=== PATIENT | male | born 1960 | race Caucasian/White ===

== ENCOUNTER 2016-05-01 10:50 | Inpatient (IN) | payer MEDICARE ==
--- NOTE | ~2016-05-01 | CN ---
Consultation Report [facility] [address] [place]. [address] NAME: CAYDEN SANCHES : 58 STATUS : ADM IN [facility]#: [id number] AGE: 56 ADM/REG DATE : 05/01/16 MR#: [id number] REPORT SERV DATE: 05/03/16 DICTATED BY: KWAKU PASCAL IV DATE: 05/03/16 REPORT STATUS : Draft TRANSCRIBED BY: BRE DATE: 05/03/16 PULMONARY CONSULTATION. DATE OF CONSULTATION: 05/03/2016 REASON FOR REQUEST: Acute on chronic hypercapnic respiratory failure with possible need for home BiPAP. HISTORY OF PRESENT ILLNESS: History was obtained from the records and from the patient and . Mr. Sanches is a 56-year-old male with a history of clinical very severe COPD, acute on chronic hypercapnic respiratory failure, tobacco dependency, cavitary lung lesion, and hypertension, who was admitted on 05/01 with recurrent exacerbation. The patient has been followed locally by initially Dr. Mims and then Dr. Marino [place]. He was admitted in a hospital in [place], [place] in late November or December for hypercapnic respiratory failure. He was on the ventilator for several days. He was sent to an inpatient rehab facility, where he stayed for 22 days. His exercise tolerance has been at best 25 feet since his discharge. He is on supplemental oxygen 24/7 at 3 L/minute. He has a Symbicort inhaler, which he uses twice a day at home as well as a nebulizer and ProAir. He was intolerant of Spiriva by his report and may have had altered mental status with Daliresp though is unsure if this was another medication. He has a daily cough productive of white phlegm. Denies fevers, chills, sweats, or hemoptysis. He did wear BiPAP transiently on presentation to the emergency room and felt this provided benefit. PULMONARY HISTORY: Remarkable for possible childhood asthma as well as the adult obstructive lung disease. He has had pneumonia in the past. He has an 80-pack year smoking history, having quit consistent use in 12/2015, however, he continues to smoke a cigarette a day and a pack in the last week. He was a truck crane operator by occupation. Currently on disability. He is up to date on both seasonal influenza vaccine as well as the pneumococcal vaccination. He is unaware of any exposure to tuberculosis or high risk situations or exposures. PAST MEDICAL HISTORY: 1. Clinical very severe COPD. 2. Chronic hypoxemia. 3. Tobacco dependency. 4. Hypertension. 5. Cavitary lung lesion. SURGERIES: The patient has abdominal hernia repair with mesh placement and then bilateral retinal surgery and cataracts. ALLERGIES: THERE ARE NO KNOWN DRUG ALLERGIES, THOUGH HE FELT HE WAS INTOLERANT TO SPIRIVA AND POSSIBLY DALIRESP. CURRENT MEDICATIONS: The patient is on Brovana unit dose twice a day, BuSpar 5 mg three Consultation Report [address] [place]. [address] NAME: CAYDEN SANCHES : 58 STATUS : ADM IN [facility]#: [id number] AGE: 56 ADM/REG DATE : 05/01/16 MR#: [id number] REPORT SERV DATE: 05/03/16 DICTATED BY: KWAKU PASCAL IV DATE: 05/03/16 REPORT STATUS : Draft TRANSCRIBED BY: BRE DATE: 05/03/16 times a day, prednisone 40 mg daily, DuoNeb every four hours, Proventil q.2 hours, Humibid 600 mg twice a day, Habitrol patch 14 mg daily, Lexapro 10 mg daily, Lopressor 25 mg three times a day, Lovenox 40 mg daily, Pulmicort 1 mg twice a day, and doxycycline 100 mg twice a day. SOCIAL HISTORY: Remarkable for the tobacco use as above. There is very rare alcohol use. No illicit drug use. He is , has a child. FAMILY HISTORY: Remarkable for both parents with presumed COPD. REVIEW OF SYSTEMS: 14-systems reviewed and pertinent positives noted above. PHYSICAL EXAMINATION: GENERAL: This is a late middle-aged male, appearing older than his stated age, in no respiratory distress at rest. He is alert, awake, and oriented. We communicate via kai [place]. VITAL SIGNS: Temperature is 98, respiratory rate is 18, saturations are 97% on 3 L via nasal cannula, heart rate is 70, and blood pressure is 127/70. HEENT: Exam is normocephalic, atraumatic. Extraocular movements are intact. Pupils react to light. Sclerae and conjunctivae normal. He has nasal cannula in place. He has a Mallampati III airway with narrowing of the posterior pharyngeal space. He is edentulous. NECK: Without any palpable lymphadenopathy or thyromegaly. CHEST: The patient has a few dry bibasilar inspiratory crackles. Expiratory phase is quite prolonged with some very faint end-expiratory wheezes. No true rhonchi are noted. CARDIOVASCULAR: Jugular venous pulsations appear to be approximately 7 cm. He has 1+ carotid upstrokes. No obvious bruit. He has a very distant regular S1, S2 with no clear murmur or S3. Peripheral pulses are diminished. ABDOMEN: Surgical scars noted. Soft, nontender. There are hypoactive bowel sounds. There is no palpable hepatosplenomegaly or mass. EXTREMITIES: Demonstrate no cyanosis, clubbing, edema, or palpable cords. NEUROLOGIC: The patient is able to follow commands. He moves all extremities. Strength is 5/5. He has decreased auditory acuity. Chest CT scan demonstrates a cavity and scar in the predominantly apical posterior and also anterior segment of the left upper lobe. There were tree-in-bud densities in the right base. There was marked emphysematous changes with no significant adenopathy. CBC: Hemoglobin 11.9, hematocrit 40.2, platelet count was 269,000, and white blood cell count is 9.6. Procalcitonin level is less than 0.05. Sodium is 146, potassium 4.1, chloride 96, hematocrit 44, BUN 14, creatinine 0.56, glucose of 100. Free T4 is normal. TSH was slightly suppressed. Initial blood gas was pH 7.29, pCO2 of 97, PO2 of 96. Most recent blood gas was pH of 7.34, pCO2 of 87, PO2 of 113. ASSESSMENT AND PLAN: 1. Respiratory. We will try Anoro Ellipta to see if he is tolerant of this LAMA. We will Consultation Report [address] [place]. [address] NAME: CAYDEN SANCHES : 58 STATUS : ADM IN [facility]#: [id number] AGE: 56 ADM/REG DATE : 05/01/16 MR#: [id number] REPORT SERV DATE: 05/03/16 DICTATED BY: KWAKU PASCAL IV DATE: 05/03/16 REPORT STATUS : Draft TRANSCRIBED BY: MODBruno DATE: 05/03/16 continue the Pulmicort 1 mg twice a day. Nebulizer will be changed from DuoNebs to albuterol with EzPAP q.4 hours while awake and q.2 hours as needed. He will be given Acapella valve three times a day. We will retry him on Daliresp with his recurrent exacerbations 500 mg daily. An overnight oximetry will be obtained on oxygen to see if he is a candidate for home BiPAP and alpha-1 antitrypsin level will be obtained with marked emphysema. 2. Infectious disease. TB QuantiFERON study will be obtained. By his report, a negative PPD skin test in last summer. 3. Neurologic. Habitrol patch for tobacco dependency. Thiamine will be given 200 mg daily for the debilitated state. 4. Renal. We will check a phosphate level and replace as indicated. 5. Endocrinologic. We will watch the blood sugars on steroids. Thank you for consulting us. We will follow the patient with you. OCTAVIANO/BRE Kwaku Pascal IV, M.D. / [id number] CC: Lucian Carias M.D.
--- NOTE | ~2016-05-01 | HP ---
History And Physical [id number] [facility] [place]. [address] NAME: CAYDEN SANCHES : 58 STATUS : ADM IN [facility]#: [id number] AGE: 55 ADM/REG DATE : 05/01/16 MR#: [id number] REPORT SERV DATE: 05/01/16 DICTATED BY: CHARLENE JAMA DATE: 05/01/16 REPORT STATUS : Draft TRANSCRIBED BY: MODL DATE: 05/01/16 DATE OF ADMISSION: 05/01/2016 IDENTIFYING DATA: A 55-year-old white male whose PCP is Dr. Shawna [place] in [place], [place], and electronic calibration technician is Dr. Marino [place] in [place]. CHIEF COMPLAINT: Shortness of breath. HISTORY OF PRESENT ILLNESS: This history of present illness is obtained by talking with the patient and also with his . I spoke with the ER physician, Dr. Llamas. I reviewed the current ER chart and talked with the ER nurse. This patient's at bedside is of help. She is deaf, but she reads lips and communicates through that mechanism. Her speech is actually quite easy to understand. The patient appears to have some mild to moderate hearing loss, but he seemed to answer me on subject every time I would ask him questions. However, when I asked him a question, 90% of the time, he would turn to his , sign to her, then she would sign something back to him, and then he would finally answer me. When I would get him to just look at me and stay focused and answer my questions, he stayed on topic. It sounds like he has had known severe COPD for several years. He wears oxygen 3 L nasal cannula 13/09. It sounds like he was hospitalized at [facility] in [place] in 09/2015 and was there for about four days, then he was hospitalized at [facility] in [place], [place]. He was on the ventilator. The states it was for two days. She states after that when he recovered, he went to a rehab. When I asked if he has been told by his doctor that he has a serious problem in his left upper lung, he states yes they told him he had a hole in that lung. I described a fiberoptic bronchoscopy, he states he has never had that. I described biopsy, he states he has never had that. He denies any history of active tuberculosis or exposure. He states he has had PPD skin test before and they were normal. I asked the the same questions and she does not know of any tuberculosis exposure or history. He is quite debilitated. At best, he can walk from 10 to 25 feet. He has been that way for a number of months. Last night, he had increased shortness of breath, increased cough, no increase in sputum. Came to the emergency room where he was noted to have hypercapnic hypoxic respiratory failure with respiratory acidosis, acute on chronic, and we were asked to admit him to the hospital. His initial blood gas done on room air pH 7.29, pCO2 of 97, pO2 of 96, bicarbonate 45. We have been asked to admit him to the hospital. He states he had his flu shot and is up-to-date on his pneumonia vaccine. REVIEW OF SYSTEMS: On review of systems, he has had some nausea. No vomiting. He has some mild low back pain. He denies chest pain, fever, abdominal pain, vomiting, diarrhea, rectal bleeding, melena, dysuria, falls, urinary hesitancy, nocturia, peripheral edema, rash, tick bites, or anorexia. He is uncertain if he has lost weight. History And Physical [address] [address] NAME: CAYDEN SANCHES : 58 STATUS : ADM IN [facility]#: [id number] AGE: 55 ADM/REG DATE : 05/01/16 MR#: [id number] REPORT SERV DATE: 05/01/16 DICTATED BY: CHARLENE JAMA DATE: 05/01/16 REPORT STATUS : Draft TRANSCRIBED BY: BRE DATE: 05/01/16 ALLERGIES: NO KNOWN DRUG ALLERGIES. PAST MEDICAL HISTORY: He denies any history of diabetes, heart disease, stroke, seizure, peptic ulcer, biliary tract disease, liver disease, chronic kidney disease, kidney stones, thyroid disease, sleep apnea, or cancer. Other past medical history includes hypertension, generalized anxiety, and depression. HOME MEDICATIONS: Albuterol nebulized and handheld, Xanax 1 mg twice a day scheduled and an extra 1 mg p.r.n. anxiety, Symbicort 160/4.5 two puffs twice a day, Lexapro 10 mg every morning, Flonase nasal spray p.r.n. seasonal allergies, Mucinex 600 mg twice daily, ibuprofen [id number] p.r.n. headache, Levaquin 750 mg daily that he reportedly started yesterday. His indicates that his PCP gave him a prescription of this to keep at home to take in case he had an acute exacerbation. Lopressor 25 mg t.i.d. PAST SURGICAL HISTORY: He has had a low abdominal hernia repair and cataract surgeries. SOCIAL HISTORY: He used to smoke two packs cigarettes per day. He has cut it down to one pack per day as of 12/2015. 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 Alcohol, he states he used to drink a little, but not a lot. He states he does not drink now. He is . His is deaf, but is excellent at lip reading, and she can communicate also by sign language and handwriting. The patient states he walks with a cane and a walker. FAMILY HISTORY: He reports both parents with histories of COPD. He does not know the health issues for his siblings. DIAGNOSTIC DATA: Chest x-ray reveals markedly hyperexpanded lung fermin with increased interstitial markings diffusely in the mid and lower lung fermin. He has dense area of haziness, possible mass versus infiltrate in the left upper lung with some central clearing areas that could represent a cavitary lesion per my interpretation. EKG done at 0919 hours reveals normal sinus rhythm. Left anterior fascicular block, pulmonary disease pattern, right atrial enlargement as per my interpretation. Arterial blood gas on 32% oxygen; pH 7.29, pCO2 of 97, pO2 of 96, bicarbonate 45. Sodium 142, potassium 4, chloride 93, CO2 is 43, BUN 12, creatinine 0.49, glucose is 144, calcium 9.1. His lactate is 2. His white count is 13.5, hemoglobin 12.9, MCHC is microcytic, the rest of the indices normal, and platelets are 269,000. PHYSICAL EXAMINATION: VITAL SIGNS: Temperature is 98, pulse 70, respirations 22, blood pressure 140/70, and O2 saturation is currently 97% on BiPAP. GENERAL: A well-developed male, who appears significantly older than his stated age and with [id number] respiratory distress. He has BiPAP on. HEENT: Head is atraumatic. Pupils are equal, round, and reactive to light. Extraocular motions are intact. No scleral icterus noted. Ear canals and TMs unremarkable. No History And Physical [address] [address] NAME: CAYDEN SANCHES : 58 STATUS : ADM IN PAT#: [id number] AGE: 55 ADM/REG DATE : 05/01/16 MR#: [id number] REPORT SERV DATE: 05/01/16 DICTATED BY: CHARLENE JAMA DATE: 05/01/16 REPORT STATUS : Draft TRANSCRIBED BY: MODBruno DATE: 05/01/16 inflammatory changes noted in the external ears. Nose, externally noninflamed. Septum midline. Nares patent. Mouth, I can see his tongue when he opens his mouth, but he has BiPAP on. Tongue appeared normal. He has a prominent carrillo. NECK: Supple. No lymph node or thyroid enlargement. The carotids have good pulses. No bruits. LUNGS: Prolonged expiratory phase in all lung fermin. 1+ expiratory wheezes diffusely, mildly increased respiratory effort. HEART: Regular rate and rhythm without murmur, gallop, click, or rub. ABDOMEN: Bowel sounds positive. Soft, flat, nondistended, nontender. No masses. No organomegaly. EXTREMITIES: Warm. No clubbing, no cyanosis, no edema. The distal left second finger is surgically absent and appears chronic. NEUROLOGICAL: He is alert. He appears oriented and cooperative. He has moderately diminished hearing, but again when I speak straight to him, he answered me each time on subject when he finally would answer me. His motor strength is symmetrical at 4/5 in all four extremities. No Babinski. No clonus noted. Other cranial nerves other than hearing grossly normal, 2 through 12. ASSESSMENT: 1. Acute on chronic hypercapnic hypoxic respiratory failure. 2. Acute exacerbation of chronic obstructive pulmonary disease. That is oxygen dependent in a gentleman who reportedly had at least two days of ventilator dependency in 12/2015 at another hospital. 3. Left upper lobe: Significant abnormalities that could represent chronic scarring, malignancy, combination of both. 4. Ongoing cigarette smoker. 5. History of prerenal azotemia. 6. Hypertension. 7. History of anxiety and depression. PLAN: The patient is being admitted to the [facility]. We will continue BiPAP and follow up blood gases. We will check procalcitonin and urine antigens and blood cultures. We will start him on antibiotics, we will continue those. We will put him on parental steroids for now and nebulizer treatments. We will get a CT when he is off BiPAP and we have requested records from [facility] as well as from [facility] to try to compare to his current findings. His is updated at the bedside at this time. CECE/BRE Charlene Jama M.D. / [id number] CC: History And Physical [address] [address] NAME: CAYDEN SANCHES : 58 STATUS : ADM IN [facility]#: [id number] AGE: 55 ADM/REG DATE : 05/01/16 MR#: [id number] REPORT SERV DATE: 05/01/16 DICTATED BY: CHARLENE JAMA DATE: 05/01/16 REPORT STATUS : Draft TRANSCRIBED BY: MODBruno DATE: 05/01/16 Lucian Carias M.D. UNKNOWN
--- NOTE | ~2016-05-01 | DS ---
Discharge Summary [facility] [address] [place]. [address] NAME: CAYDEN SANCHES : 58 STATUS : DIS IN PAT#: [id number] AGE: 56 ADM/REG DATE : 05/01/16 MR#: [id number] REPORT SERV DATE: 05/06/16 DICTATED BY: JASON VILLALTA DATE: 05/06/16 REPORT STATUS : Draft TRANSCRIBED BY: MODL DATE: 05/06/16 ADMISSION DATE: 05/01/2016 DISCHARGE DATE: 05/06/2016 The patient is a 56-year-old male with a history of hypertension, severe COPD, who presented to the emergency room with a complaint of shortness of breath. For further details please refer to H and P dictated by Dr. Jama on 05/01/2016. HOSPITAL COURSE: Upon presentation to the emergency room, preliminary workup included an ABG which noted the patient to be in hypoxic respiratory failure. The patient was admitted on the Hospitalist Service for further management. Given his severe symptoms, the patient was placed on BiPAP. Pulmonology was consulted to assist with management. For further details please refer to consultation note dictated by Raphael Pascal on 05/03/2016. The etiology of his hypercapnic hypoxic respiratory failure secondary to COPD exacerbation. The patient was started on steroids and antibiotics for management. The patient progressively improved during his hospitalization and was also followed by Pulmonology throughout his hospitalization here. CT scan was obtained during this admission to further evaluate and characterize his lung physiology to assist in management. During his hospital course, the patient responded very well to therapy, he is now hemodynamically stable. Has been cleared by Pulmonology for discharge. The patient has an outpatient communications analyst which he follows and is compliant with his appointments. From discussions with Pulmonary, the patient would benefit from BiPAP; however, does not meet criteria for BiPAP approval by insurance. Pulmonology will continue to follow the patient to look for ways to obtain BiPAP machine for the patient. Also from Pulmonology standpoint, the patient will benefit from pulmonary rehab. However, it appears that his insurance will not cover for that cost at this time. Pulmonology is also working on the logistics to provide him this beneficial therapy. Given his hemodynamic stability completion of workup clearance by Pulmonology, the patient will be discharged today to follow up with his primary care physician and his outpatient Pulmonology. Plan has been discussed with the patient who voices understanding and is agreeable with this plan. DISCHARGE DIAGNOSES: 1. Hypercapnic hypoxic respiratory failure. 2. Chronic obstructive pulmonary disease exacerbation. 3. Cavitary lung lesion. 4. Hypertension. 5. Generalized anxiety disorder. DISCHARGE PHYSICAL EXAMINATION: VITAL SIGNS: Blood pressure 109/66 with a pulse of 65, respirations 17 on 3 L nasal cannula, the patient saturated at 97%, and temperature 98.6%. GENERAL: The patient lying in bed, in no acute distress. HEENT: Normocephalic and atraumatic. Extraocular motor is intact. Moist oral mucosa. The patient is edentulous. NECK: Trachea midline and symmetric. No JVD noted. No thyromegaly present. CHEST: No scars. Nontender to palpation. CARDIOVASCULAR: Regular rate and rhythm, S1 and S2. No murmurs, rubs, or gallops. Discharge Summary [address] [address] NAME: CAYDEN SANCHES : 58 STATUS : DIS IN PAT#: [id number] AGE: 56 ADM/REG DATE : 05/01/16 MR#: [id number] REPORT SERV DATE: 05/06/16 DICTATED BY: JASON VILLALTA DATE: 05/06/16 REPORT STATUS : Draft TRANSCRIBED BY: BRE DATE: 05/06/16 LUNGS: Severely decreased breath sounds; however, no wheezing or rhonchi noted. ABDOMEN: Flat and soft. Positive bowel sounds. Nontender. Nondistended. EXTREMITIES: No cyanosis. No clubbing. No edema. NEURO: Alert and oriented x3. DISCHARGE MEDICATIONS: 1. Lexapro 10 mg p.o. daily. 2. Lopressor 25 mg p.o. three times a day. 3. Albuterol two puffs inhalation p.r.n. 4. Alprazolam 1 mg p.o. daily and 1 mg p.o. p.r.n. 5. Symbicort two puff inhalation twice a day. IMAGING: CTA chest. Impression: Chronic inflammatory changes in the apical posterior segment of left upper lobe with residual parenchymal scarring and cavitation, widespread emphysema. No acute pneumonic process. Parenchymal nodules of the left pulmonary tree. Followup CT without contrast in six months recommended. DISPOSITION: The patient will be discharged home to follow up with primary care physician and communications analyst as an outpatient. ACTIVITY: As tolerated. DIET: Regular. Greater than 30 minutes were spent on coordination of care, dictation of note, medication reconciliation. EDIN/BRE Jason Villalta MD / [id number] CC: Jason Villalta MD
--- NOTE | ~2016-05-01 | PUL ---
[facility] [address] [place]. [address] NAME: CAYDEN SANCHES : 58 STATUS : ADM IN PAT#: [id number] AGE: 56 ADM/REG DATE : 05/01/16 MR#: [id number] REPORT SERV DATE: 05/04/16 DICTATED BY: KWAKU PASCAL IV DATE: 05/04/16 REPORT STATUS : Draft TRANSCRIBED BY: MODL DATE: 05/04/16 PULMONARY FUNCTION TEST OVERNIGHT OXIMETRY Study was performed on 3 L of supplemental oxygen. 6 hours and 51 minutes of data are available for review. The mean oxygen saturation was 97.1%. Lowest scored saturation was 90%. The patient spent 0 time with oxygen saturations less than 88%. IMPRESSION: No significant nocturnal hypoxemia on 3 L of supplemental oxygen. There is no pattern consistent with obstructive sleep apnea. OCTAVIANO/BRE Kwaku Pascal IV, M.D. / [id number] CC: Brayden Shepherd MD
[2016-05-01 09:23] LABS: ALLENS TEST Pos; CARBOXYHEMOGLOBIN 2.3 % (0-3); DEVICE NC; HEMOBLOGIN CONTENT 13.3 G/DL (14-18); INSTRUMENT SERIAL # 8087; METHEMOGLOBIN 0.3 % (0-3); O2 CONTENT 17.9 VOL% (18-24); PCO2 (CO2 TENSION) 97 MMHG (35-45); PO2 (O2 TENSION) 96 MMHG (79-93); SAMPLE Arterial; pH 7.29 (7.37-7.43)
[2016-05-01 09:28] LABS: BASOPHILS 0.3 %; BASOPHILS ABSOLUTE 0.04 10/3/uL (0.0-0.16); EOSINOPHILS 0.4 %; EOSINOPHILS ABSOLUTE 0.05 10/3/uL (0.0-0.53); HEMATOCRIT 42.4 % (40.0-51.0); HEMOGLOBIN 12.9 g/dL (13.6-17.8); IMMATURE GRANULOCYTES 0.1 %; IMMATURE GRANULOCYTES ABSOLUTE 0.01 10/3/uL (0.0-0.11); LYMPHOCYTES 7.3 %; LYMPHOCYTES ABSOLUTE 0.98 10/3/uL (0.67-4.30); MEAN CORPUS HGB CONC 30.4 g/dL (32.0-36.0); MEAN CORPUSCULAR HEMOGLOB 28.5 pg (26.0-34.0); MEAN CORPUSCULAR VOLUME 93.6 fL (80-100); MEAN PLATELET VOLUME 9.4 fL (9.2-13.0); MONOCYTES 9.4 %; MONOCYTES ABSOLUTE 1.27 10/3/uL (0.21-1.20); NEUTROPHILS 82.5 %; NEUTROPHILS ABSOLUTE 11.14 10/3/uL (2.02-8.40); PLATELET COUNT 264 10/3/uL (150-400); RED CELL COUNT 4.53 10/6/uL (4.7-6.1); WHITE BLOOD CELLS 13.5 10/3/uL (4.5-10.5)
[2016-05-01 09:29] LABS: MANUAL DIFF NO %
[2016-05-01 09:40] LABS: BUN (BLOOD UREA NITROGEN) 12 MG/DL (6-23); CALCIUM, SERUM 9.1 MG/DL (8.5-10.4); CHLORIDE, SERUM 93 MMOL/L (96-112); CREATININE 0.49 MG/DL (0.70-1.30); GFR AFRICAN AMERICAN 142 ML/MIN (>=60); GFR NON AFRICAN AMERICAN 122 ML/MIN (>=60); GLUCOSE, SERUM 144 MG/DL (60-99); SODIUM, SERUM 142 MMOL/L (135-148)
[2016-05-01 09:48] LABS: CO2 (CARBON DIOXIDE) 43 MMOL/L (24-34)
[~2016-05-01 10:50] MED LIST: ADVIL PO; DUONEB INH; FLONASE NAS; LEVAQUIN750 MG PO; LEXAPRO10 PO; LOP25 PO; MUCINEX600 MG PO; PROAIR HFA INH; SYMBICORT 160/41 INH INH; XANAX1 MG PO
[2016-05-01 18:11] LABS: ALKALINE PHOSPHATASE 107 U/L (45-117); SGOT(AST) 15 U/L (5-40); SGPT(ALT) 17 U/L (5-65); TOTAL BILIRUBIN 0.2 MG/DL (0-1.2); TROPONIN I <0.02 NG/ML (<0.05); ULTRASENSITIVE TSH 0.124 MCIU/ML (0.358-3.740)
[2016-05-01 18:14] LABS: DIRECT BILIRUBIN < 0.1 MG/DL (0.0-0.4); INDIRECT BILIRUBIN(NOT ORDER) 0.1 MG/DL (0.1-0.9)
[2016-05-01 19:07] LABS: PROCALCITONIN <0.05 ng/mL (<0.5)
[2016-05-01 19:28] LABS: ALLENS TEST Pos; BE (BASE EXCESS) 10.8 MEQ/L (0 +/- 2.5); CARBOXYHEMOGLOBIN 1.4 % (0-3); HCO3 (ACTUAL BICARBONATE) 38.8 MEQ/L (23-27); HEMOBLOGIN CONTENT 13.2 G/DL (14-18); INSTRUMENT SERIAL # 8083; METHEMOGLOBIN 0.3 % (0-3); OPERATOR ID 30013; PCO2 (CO2 TENSION) 68 MMHG (35-45); PO2 (O2 TENSION) 98 MMHG (79-93); SAMPLE Arterial; pH 7.37 (7.37-7.43)
[2016-05-02 04:46] LABS: BASOPHILS 0 %; EOSINOPHILS 0 %; HEMOGLOBIN 12.1 g/dL (13.6-17.8); LYMPHOCYTES 8.7 %; LYMPHOCYTES ABSOLUTE 0.61 10/3/uL (0.67-4.30); MEAN CORPUSCULAR HEMOGLOB 28.1 pg (26.0-34.0); MEAN PLATELET VOLUME 9.2 fL (9.2-13.0); MONOCYTES 4.9 %; MONOCYTES ABSOLUTE 0.34 10/3/uL (0.21-1.20); NEUTROPHILS 86.4 %; NEUTROPHILS ABSOLUTE 6.06 10/3/uL (2.02-8.40); PLATELET COUNT 239 10/3/uL (150-400); RBC DISTRIBUTION WIDTH 15.1 % (12.0-16.0); RED CELL COUNT 4.31 10/6/uL (4.7-6.1)
[2016-05-02 04:47] LABS: MANUAL DIFF NO %; MEAN CORPUSCULAR VOLUME 90.5 fL (80-100)
[2016-05-02 05:00] LABS: BUN (BLOOD UREA NITROGEN) 14 MG/DL (6-23); CALCIUM, SERUM 9.1 MG/DL (8.5-10.4); CHLORIDE, SERUM 93 MMOL/L (96-112); CO2 (CARBON DIOXIDE) 40 MMOL/L (24-34); CREATININE 0.58 MG/DL (0.70-1.30); GFR AFRICAN AMERICAN 131 ML/MIN (>=60); GFR NON AFRICAN AMERICAN 113 ML/MIN (>=60); GLUCOSE, SERUM 143 MG/DL (60-99); POTASSIUM, SERUM 3.7 MMOL/L (3.5-5.3); SODIUM, SERUM 142 MMOL/L (135-148)
[2016-05-02 08:20] LABS: FREE T4 1.28 NG/DL (0.76-1.46)
[2016-05-02 10:28] LABS: INFLUENZA A SCREEN NEGATIVE (NEGATIVE); INFLUENZA B SCREEN NEGATIVE (NEGATIVE)
[2016-05-03 03:57] LABS: ALLENS TEST Pos; BE (BASE EXCESS) 15.6 MEQ/L (0 +/- 2.5); CARBOXYHEMOGLOBIN 0.3 % (0-3); DEVICE NC; HCO3 (ACTUAL BICARBONATE) 45.5 MEQ/L (23-27); HEMOBLOGIN CONTENT 12.8 G/DL (14-18); INSTRUMENT SERIAL # 8083; METHEMOGLOBIN 0.3 % (0-3); O2 CONTENT 17.7 VOL% (18-24); OPERATOR ID 35190; PCO2 (CO2 TENSION) 87 MMHG (35-45); PO2 (O2 TENSION) 113 MMHG (79-93); SAMPLE Arterial; pH 7.34 (7.37-7.43)
[2016-05-03 06:24] LABS: BASOPHILS 0.2 %; BASOPHILS ABSOLUTE 0.02 10/3/uL (0.0-0.16); EOSINOPHILS 0.2 %; EOSINOPHILS ABSOLUTE 0.02 10/3/uL (0.0-0.53); HEMATOCRIT 40.2 % (40.0-51.0); HEMOGLOBIN 11.9 g/dL (13.6-17.8); IMMATURE GRANULOCYTES 0.1 %; IMMATURE GRANULOCYTES ABSOLUTE 0.01 10/3/uL (0.0-0.11); LYMPHOCYTES 13.1 %; LYMPHOCYTES ABSOLUTE 1.25 10/3/uL (0.67-4.30); MEAN CORPUS HGB CONC 29.6 g/dL (32.0-36.0); MEAN CORPUSCULAR HEMOGLOB 27.5 pg (26.0-34.0); MEAN CORPUSCULAR VOLUME 93.1 fL (80-100); MEAN PLATELET VOLUME 9.5 fL (9.2-13.0); MONOCYTES 11.2 %; MONOCYTES ABSOLUTE 1.07 10/3/uL (0.21-1.20); NEUTROPHILS 75.2 %; PLATELET COUNT 269 10/3/uL (150-400); RBC DISTRIBUTION WIDTH 15.7 % (12.0-16.0); RED CELL COUNT 4.32 10/6/uL (4.7-6.1); WHITE BLOOD CELLS 9.6 10/3/uL (4.5-10.5)
[2016-05-03 06:26] LABS: MANUAL DIFF NO %
[2016-05-03 06:32] LABS: BUN (BLOOD UREA NITROGEN) 14 MG/DL (6-23); CALCIUM, SERUM 9.1 MG/DL (8.5-10.4); CHLORIDE, SERUM 96 MMOL/L (96-112); CO2 (CARBON DIOXIDE) 44 MMOL/L (24-34); CREATININE 0.56 MG/DL (0.70-1.30); GFR AFRICAN AMERICAN 133 ML/MIN (>=60); GFR NON AFRICAN AMERICAN 115 ML/MIN (>=60); GLUCOSE, SERUM 100 MG/DL (60-99); POTASSIUM, SERUM 4.1 MMOL/L (3.5-5.3); SODIUM, SERUM 146 MMOL/L (135-148)
[2016-05-03 15:33] LABS: PHOSPHORUS, SERUM 2.9 MG/DL (2.5-4.5)
[2016-05-05 05:53] LABS: BASOPHILS 0.1 %; BASOPHILS ABSOLUTE 0.01 10/3/uL (0.0-0.16); EOSINOPHILS 0.9 %; EOSINOPHILS ABSOLUTE 0.09 10/3/uL (0.0-0.53); HEMOGLOBIN 12.9 g/dL (13.6-17.8); IMMATURE GRANULOCYTES 0.2 %; IMMATURE GRANULOCYTES ABSOLUTE 0.02 10/3/uL (0.0-0.11); LYMPHOCYTES 16.3 %; LYMPHOCYTES ABSOLUTE 1.59 10/3/uL (0.67-4.30); MANUAL DIFF NO %; MEAN CORPUS HGB CONC 30.7 g/dL (32.0-36.0); MEAN CORPUSCULAR HEMOGLOB 28.4 pg (26.0-34.0); MEAN CORPUSCULAR VOLUME 92.3 fL (80-100); MEAN PLATELET VOLUME 9.5 fL (9.2-13.0); MONOCYTES 16.3 %; MONOCYTES ABSOLUTE 1.59 10/3/uL (0.21-1.20); NEUTROPHILS 66.2 %; NEUTROPHILS ABSOLUTE 6.43 10/3/uL (2.02-8.40); PLATELET COUNT 248 10/3/uL (150-400); RBC DISTRIBUTION WIDTH 15.5 % (12.0-16.0); RED CELL COUNT 4.55 10/6/uL (4.7-6.1); WHITE BLOOD CELLS 9.7 10/3/uL (4.5-10.5)
[2016-05-05 06:11] LABS: A/G RATIO 0.6 (0.7-1.9); BUN (BLOOD UREA NITROGEN) 16 MG/DL (6-23); CALCIUM, SERUM 9.1 MG/DL (8.5-10.4); CHLORIDE, SERUM 103 MMOL/L (96-112); CREATININE 0.68 MG/DL (0.70-1.30); GFR AFRICAN AMERICAN 123 ML/MIN (>=60); GFR NON AFRICAN AMERICAN 106 ML/MIN (>=60); GLOBULIN 4.8 G/DL (2.5-4.1); GLUCOSE, SERUM 90 MG/DL (60-99); PHOSPHORUS, SERUM 2.6 MG/DL (2.5-4.5); POTASSIUM, SERUM 3.7 MMOL/L (3.5-5.3); SGOT(AST) 18 U/L (5-40); SGPT(ALT) 25 U/L (5-65); SODIUM, SERUM 145 MMOL/L (135-148); TOTAL BILIRUBIN 0.2 MG/DL (0-1.2); TOTAL PROTEIN 7.8 G/DL (6.0-8.5)
[2016-05-05 06:14] LABS: ALKALINE PHOSPHATASE 94 U/L (45-117); CO2 (CARBON DIOXIDE) 37 MMOL/L (24-34)
[2016-05-06 05:59] LABS: BASOPHILS 0.1 %; BASOPHILS ABSOLUTE 0.01 10/3/uL (0.0-0.16); EOSINOPHILS ABSOLUTE 0.09 10/3/uL (0.0-0.53); HEMATOCRIT 40.8 % (40.0-51.0); HEMOGLOBIN 12.5 g/dL (13.6-17.8); IMMATURE GRANULOCYTES 0.2 %; IMMATURE GRANULOCYTES ABSOLUTE 0.02 10/3/uL (0.0-0.11); LYMPHOCYTES 17.2 %; LYMPHOCYTES ABSOLUTE 1.61 10/3/uL (0.67-4.30); MEAN CORPUS HGB CONC 30.6 g/dL (32.0-36.0); MEAN CORPUSCULAR HEMOGLOB 27.8 pg (26.0-34.0); MEAN CORPUSCULAR VOLUME 90.7 fL (80-100); MEAN PLATELET VOLUME 9.6 fL (9.2-13.0); MONOCYTES 12.4 %; MONOCYTES ABSOLUTE 1.16 10/3/uL (0.21-1.20); NEUTROPHILS 69.1 %; NEUTROPHILS ABSOLUTE 6.49 10/3/uL (2.02-8.40); PLATELET COUNT 262 10/3/uL (150-400); RBC DISTRIBUTION WIDTH 15.8 % (12.0-16.0); WHITE BLOOD CELLS 9.4 10/3/uL (4.5-10.5)
[2016-05-06 06:05] LABS: MANUAL DIFF NO %
[2016-05-06 06:13] LABS: A/G RATIO 0.6 (0.7-1.9); ALKALINE PHOSPHATASE 96 U/L (45-117); BUN (BLOOD UREA NITROGEN) 18 MG/DL (6-23); CALCIUM, SERUM 9.2 MG/DL (8.5-10.4); CHLORIDE, SERUM 104 MMOL/L (96-112); CO2 (CARBON DIOXIDE) 34 MMOL/L (24-34); CREATININE 0.63 MG/DL (0.70-1.30); GFR AFRICAN AMERICAN 127 ML/MIN (>=60); GFR NON AFRICAN AMERICAN 109 ML/MIN (>=60); GLOBULIN 4.7 G/DL (2.5-4.1); GLUCOSE, SERUM 89 MG/DL (60-99); SGPT(ALT) 22 U/L (5-65); SODIUM, SERUM 145 MMOL/L (135-148); TOTAL BILIRUBIN 0.5 MG/DL (0-1.2); TOTAL PROTEIN 7.7 G/DL (6.0-8.5)
[2016-05-06 06:14] LABS: POTASSIUM, SERUM 3.8 MMOL/L (3.5-5.3); SGOT(AST) 20 U/L (5-40)
[2016-05-06] MEDS ORDERED: MEDROLPAK4 PO (11:29)
[2016-05-06] MEDS ORDERED: DALIRESP500 MCG PO (11:32)
[2016-05-06] MEDS ORDERED: ANOROELLIPTA INH (11:32)
[2016-05-07 09:28] LABS: QUANTIFERON MITOGEN (MG NIL) 0.85 IU/mL (()); QUANTIFERON NIL 0.09 IU/mL (()); QUANTIFERON TB GOLD Negative (NEG)
== END 2016-05-06 15:21 | disposition home or self-care (01) | DRG 189 ==
LOC: ER 10:50 → ER/OF 11:05 → IMCU 13:51 → 2SO 05-02 11:46
PROVIDERS: Emergency Medicine; Hospitalist; Internal Medicine; Internal Medicine Critical Care Medicine
PROC: 5A09457 Assistance with Respiratory Ventilation, 24-96 Consecutive Hours, Continuous Positive Airway Pressure (ICD-10-PCS; principal; 2016-05-05)
DX: J96.21 Acute and chronic respiratory failure with hypoxia (principal); Z99.81 Dependence on supplemental oxygen; A15.0 Tuberculosis of lung; J44.1 Chronic obstructive pulmonary disease with (acute) exacerbation; J96.22 Acute and chronic respiratory failure with hypercapnia; F17.210 Nicotine dependence, cigarettes, uncomplicated; I10 Essential (primary) hypertension; F32.9 Major depressive disorder, single episode, unspecified; F41.9 Anxiety disorder, unspecified; H91.90 Unspecified hearing loss, unspecified ear; R91.1 Solitary pulmonary nodule; Z79.899 Other long term (current) drug therapy
CPT/HCPCS: 36600; 71010; 71275; 80048; 80053; 80076; 82103; 82805; 83605; 83735; 83880; 84100; 84145; 84439; 84443; 84481; 84484; 85025; 86480; 87040; 87449; 87804; 93005; 94640; 94660; 94667; 94668; 94762; 96374; 97116-GP; 97162-GP; 99291; A9270-GY; J0456; J2920; J3411; Q9967

== ENCOUNTER 2016-05-16 09:51 | Inpatient (IN) | payer MEDICARE ==
--- NOTE | ~2016-05-16 | PUL ---
[id number] [place]. [address] NAME: CAYDEN SANCHES : 58 STATUS : ADM IN PAT#: [id number] AGE: 56 ADM/REG DATE : 05/16/16 MR#: [id number] REPORT SERV DATE: 05/21/16 DICTATED BY: AL MARQUEZ DATE: 05/21/16 REPORT STATUS : Draft TRANSCRIBED BY: MODL DATE: 05/21/16 PULMONARY FUNCTION TEST PROCEDURE: Nocturnal oximetry study. DESCRIPTION: This is a nocturnal oximetry study performed on 05/19/2016 starting at 10:55 p.m., ending 05/20/2016 at 5:39 a.m. The study was ended early at around 3:39 a.m. when the patient complained of shortness of breath and requested that the BiPAP be placed on the patient. Initial FiO2 was 32%. Total recording time was 6 hours 42 minutes 26 seconds. Average heart rate 98 with a low of 77 and a high of 134. Average O2 saturation 95.3% with a low of 87%. Time below 88% was 8 seconds. IMPRESSION: This is an abnormal oximetry study showing the patient got severely short of breath causing the oximetry study to be obtained in early so the patient can be put on BiPAP. Although the patient's time below 88% was less than 5 minutes, the patient had significant respiratory symptoms necessitating BiPAP for him to continue to have stable respiratory pattern at night. KE/BRE Al Marquez DO / [id number] CC: Lucian Carias M.D.
--- NOTE | ~2016-05-16 | CN ---
Consultation Report [facility] [address] [facility] [place]. [address] NAME: CAYDEN SANCHES : 58 STATUS : ADM IN [facility]#: [id number] AGE: 56 ADM/REG DATE : 05/16/16 MR#: [id number] REPORT SERV DATE: 05/18/16 DICTATED BY: AL MARQUEZ DATE: 05/18/16 REPORT STATUS : Draft TRANSCRIBED BY: MODBruno DATE: 05/18/16 DATE OF CONSULTATION: HISTORY OF PRESENT ILLNESS: 56-year-old white male, who was recently in the hospital earlier this month being treated for hypercapnic and hypoxic respiratory failure along with COPD exacerbation. He returns to be readmitted 10 days after discharge for similar symptoms of shortness of breath. The patient does have a history of left upper lobe cavitary lung disease, chronic hypoxic respiratory failure, COPD, on home oxygen at 3 L/minute. The patient was being seen locally by Dr. Mims and then Dr. Latrell Lynn. He has had repeat hospitalizations in the recent months. Last admission, he had a negative QuantiFERON level, as well as adequate alpha 1 antitrypsin levels. His home inhaler regimen include DuoNeb aerosols, a ProAir HFA inhaler, Symbicort 160/4.5, Daliresp, and Anoro. We were asked to come see the patient for a persistent hypercapnic respiratory failure with last blood gas early this morning showed a pH of 7.34, pCO2 81, pO2 86, bicarb 42.3 and O2 saturation 96.4%. This is on a BiPAP of 20/15 with a set rate of 18 and FiO2 30%. The patient had a repeat CT scan of the chest on this admission compared to last admission. There really are no new infiltrates. He does have severe emphysema in both lungs and there is a persistent left upper lobe cavity that is no different compared to previous CT scan from 05/02/2016. He is currently on IV steroids and oral doxycycline along with inhalers. PAST MEDICAL HISTORY: See above, as well as hypertension, anxiety. HOME MEDICATIONS: Reviewed. ALLERGIES: NONE. SOCIAL HISTORY: No alcohol. Former heavy smoker. FAMILY HISTORY: Unknown. PHYSICAL EXAMINATION: VITAL SIGNS: Per nursing flow sheet. GENERAL: No acute distress. Somewhat somnolent, but cooperative. HEENT: Normocephalic, atraumatic. NECK: Trachea midline. HEART: Regular rate and rhythm. No murmurs. LUNGS: Diminished bilaterally. No wheezes. No accessory muscle use. Currently on BiPAP of 20/5 with a set rate of 18 with tidal volumes in the mid 500s. I did decrease his set rate on his BiPAP down to 6 because of ineffective breath delivery and machine the patient asynchrony. GI: Soft, nontender, nondistended. EXTREMITIES: No edema, cyanosis, or clubbing. LABORATORY AND RADIOLOGY STUDIES: Reviewed. Consultation Report [address] [address] NAME: CAYDEN SANCHES : 58 STATUS : ADM IN [facility]#: [id number] AGE: 56 ADM/REG DATE : 05/16/16 MR#: [id number] REPORT SERV DATE: 05/18/16 DICTATED BY: AL MARQUEZ DATE: 05/18/16 REPORT STATUS : Draft TRANSCRIBED BY: MODL DATE: 05/18/16 ASSESSMENT AND PLAN: 1. Acute on chronic hypercapnic respiratory failure. 2. Chronic obstructive pulmonary disease exacerbation. 3. Left upper lobe cavitary lung disease. 4. The patient with repeat hospitalizations for respiratory failure and chronic obstructive pulmonary disease. The patient has severe end-stage emphysema along with bad cavitary lung disease. Cavitary lung disease is no different on this CT scan compared to the previous CT scan. Currently on doxycycline and IV steroids for chronic obstructive pulmonary disease exacerbation. We will not change these. However, we will change his inhaler regimen by getting him off the oral inhalers since he is on bilevel positive airway pressure. We will start Pulmicort and Brovana twice a day and scheduled DuoNeb every four hours. Again, the backup rate on the bilevel positive airway pressure was reduced down to 6. Repeat arterial blood gas today and add a procalcitonin level. CEP/MODL Al Marquez DO / [id number] CC: Quinn Dias MD
--- NOTE | ~2016-05-16 | DS ---
Discharge Summary [address] [place]. [address] NAME: CAYDEN SANCHES : 58 STATUS : DIS IN PAT#: [id number] AGE: 56 ADM/REG DATE : 05/16/16 MR#: [id number] REPORT SERV DATE: 05/26/16 DICTATED BY: QUINN PRESTON DATE: 05/25/16 REPORT STATUS : Draft TRANSCRIBED BY: BRE DATE: 05/25/16 ADMISSION DATE: 05/16/2016 DISCHARGE DATE: 05/25/2016 PROCEDURES DONE: 1. On 05/16/2016, chest x-ray: Chronic appearing infiltrates in left upper lobe superimposed over unknown thick walled cavitary lesion when compared to prior chest CT. Superimposed acute infiltrates difficult to exclude, although no definite new airspace disease identified here. Hyperinflated lungs consistent with known underlying emphysematous changes on prior CT. Recommend attempt made to obtain older outside chest imaging for comparison. 2. On 05/18/2015, CT chest without contrast: Some volume is loss in the infected apical posterior segment on the left upper lobe with small volume of consolidation along the major fissure and persistent cavitation centrally. No new infiltrates identified in the hyperinflated left lower lobe. CONSULT: Pulmonary. REASON FOR ADMISSION: Shortness of breath. HISTORY OF HOSPITAL STAY: A 56-year-old white male with past medical history of cavitary lesion, chronic hypoxic respiratory failure on 3 L nasal cannula, COPD, hypertension, general anxiety disorder, presenting with shortness of breath x1 day. The patient initially was discharged on 05/06/2016 for acute on chronic hypercapnic hypoxemic respiratory failure. Unfortunately, the patient is having a repeat of his hypercapnic hypoxemic respiratory failure. Attempt was made to get the BiPAP at home, but unfortunately the patient was not able to use a BiPAP at all. Therefore within 24 hours the patient came back for further evaluation and treatment for his shortness of breath. While in hospital stay, Pulmonary was consulted for further evaluation and treatment. Chest x-ray shows no questionable active infiltrate. A repeat CT of the chest shows no acute infiltrates; however, the patient is having worsening end-stage COPD requiring constant BiPAP use. Eventually, hospice was consulted. Family has been very agreeable with transition to [facility] for the patient due to his multiple admissions in the past as well as his end-stage COPD. Currently, [facility] was able to secure a BiPAP for home and to transfer the patient once able to get the BiPAP at home which is later this afternoon. DISPOSITION: The patient is feeling fine. No complaints. ACTIVITY: As tolerated. DIET: Regular. INSTRUCTIONS UPON DISCHARGE: The patient will be followed up by [facility]. MEDICATION UPON DISCHARGE: Management as per [facility]. Discharge Summary [address] [address] NAME: CAYDEN SANCHES : 58 STATUS : DIS IN PAT#: [id number] AGE: 56 ADM/REG DATE : 05/16/16 MR#: [id number] REPORT SERV DATE: 05/26/16 DICTATED BY: QUINN PRESTON DATE: 05/25/16 REPORT STATUS : Draft TRANSCRIBED BY: BRE DATE: 05/25/16 DIAGNOSES UPON DISCHARGE: 1. Shortness of breath secondary to acute on chronic obstructive pulmonary disease versus acute on chronic hypercapnic respiratory failure. 2. Acute on chronic hypercapnic respiratory failure. 3. Acute exacerbation of chronic obstructive pulmonary disease end-stage. 4. Hypertension. 5. Generalized anxiety disorder. ODELL/BRE Quinn Preston MD / [id number] CC: Quinn Preston MD
--- NOTE | ~2016-05-16 | HP ---
History And Physical [address] [place]. [address] NAME: CAYDEN SANCHES : 58 STATUS : ADM IN [facility]#: [id number] AGE: 56 ADM/REG DATE : 05/16/16 MR#: [id number] REPORT SERV DATE: 05/16/16 DICTATED BY: QUINN PRESTON DATE: 05/16/16 REPORT STATUS : Draft TRANSCRIBED BY: MODL DATE: 05/16/16 DATE OF ADMISSION: 05/16/2016 REASON FOR ADMISSION: Shortness of breath. HISTORY OF PRESENT ILLNESS: A 56-year-old white male, past medical history of cavitary lesion, chronic hypoxic respiratory failure, COPD, on 3 L of nasal cannula, hypertension, general anxiety disorder, presenting with shortness of breath x1 day. The patient was recently discharged on 05/06/2016 for hypercapnic-hypoxic respiratory failure. Unfortunately, the patient was having repeat of his hypercapnic-hypoxemic respiratory failure. Apparently, attempts are being made as an outpatient to try to give the patient a BiPAP. The patient states that he was doing quite well for the past week until within the past 24 hours. He started having nausea, but not vomiting, at which point, the patient started having wheezing and shortness of breath and came into the ER for further evaluation and treatment. The patient states that he denies any cough, fevers, or chills, as well as increased sputum production. He denies any chest pain, but has shortness of breath. He has been using his bronchodilators, but without any relief. PAST MEDICAL HISTORY: As above. MEDICATIONS: 1. The patient takes DuoNeb three times a day p.r.n. 2. ProAir two puffs six times a day p.r.n. 3. Xanax 1 mg p.o. b.i.d. 4. Xanax 1 mg p.o. daily p.r.n. 5. Symbicort 160/4.5 two puffs b.i.d. 6. Lexapro 10 mg p.o. daily. 7. Flonase two sprays daily p.r.n. 8. Mucinex 600 mg p.o. daily p.r.n. 9. Advil 400 mg p.o. daily p.r.n. 10.Metoprolol 25 mg p.o. three times a day. 11.Daliresp 500 mcg p.o. daily. 12.Anoro Ellipta 6.25/25 inhaled daily. ALLERGIES: NO KNOWN DRUG ALLERGIES. SOCIAL HISTORY: Quit smoking. Nondrinker. FAMILY HISTORY: Discussed. The patient states he cannot remember any of his family medical history. REVIEW OF SYSTEMS: 10-point review of systems conducted, which were negative except for the above complaints. PHYSICAL EXAMINATION: VITAL SIGNS: Temp of 98.5, pulse 118, respiratory rate 20, BP 147/77, O2 saturation 95% on History And Physical [address] [address] NAME: CAYDEN SANCHES : 58 STATUS : ADM IN [facility]#: [id number] AGE: 56 ADM/REG DATE : 05/16/16 MR#: [id number] REPORT SERV DATE: 05/16/16 DICTATED BY: QUINN PRESTON DATE: 05/16/16 REPORT STATUS : Draft TRANSCRIBED BY: BRE DATE: 05/16/16 4 L. HEAD AND NECK: Normocephalic, atraumatic. CARDIOVASCULAR: S1, S2. Regular rate and rhythm. Tachycardic. LUNGS: Good air entry. Positive expiratory wheezes on all lung fermin. The patient is wearing a BiPAP. ABDOMEN: Soft, nontender, nondistended. Positive bowel sounds. EXTREMITIES: No clubbing, cyanosis, or edema. NEUROLOGICAL: Awake, alert, and oriented x3. Cranial nerves 2 through 12 grossly intact. LABORATORY DATA: Sodium 141, potassium 3.8, chloride 98, bicarb 38, BUN 13, creatinine 0.55, glucose 162. GFR 116. Calcium 9.0, magnesium 2.1. BNP 60.8. Troponin 0.02. ABG on FiO2 30% shows pH of 7.30, pCO2 is 76, pO2 72, bicarb 36.2, O2 saturation 93.7. WBC 14.6, hemoglobin 12.3, hematocrit 39.1, and platelets 231. Chest x-ray shows no infiltrates appreciated. Cavitary lesion is noted on the left lung. ASSESSMENT AND PLAN: 1. Shortness of breath secondary to acute exacerbation of chronic obstructive pulmonary disease versus acute hypercapnic-hypoxemic respiratory failure. The patient will be started on a bilevel positive airway pressure 13/09 until we can drive the pCO2 down. In addition, we will start the patient on Solu-Medrol 20 mg IV b.i.d. with a sliding scale level 2, checking blood sugar before meals and at bedtime. We are also going to continue the patient's breathing treatment as well. 2. Acute on chronic hypercapnic-hypoxemic respiratory failure. Cause of problem, #1. 3. Acute exacerbation of chronic obstructive pulmonary disease. Cause of problem, #1. We will treat the patient with Solu-Medrol 20 mg IV b.i.d., as well as sliding scale level 2 and check blood sugar before meals and at bedtime. In addition, we will continue also with breathing treatments as well. 4. Hypertension. Continue metoprolol. Have hydralazine p.r.n. for systolic greater than 160. 5. Generalized anxiety disorder. Continue Lexapro and Xanax. 6. Deep vein thrombosis prophylaxis. We will give the patient heparin. ODELL/BRE Quinn Preston MD / [id number]
[~2016-05-16 09:51] MED LIST changes: +ANOROELLIPTA INH; +DALIRESP500 MCG PO; +MEDROLPAK4 PO
[2016-05-16 10:20] LABS: ALLENS TEST Pos; BE (BASE EXCESS) 7.1 MEQ/L (0 +/- 2.5); CARBOXYHEMOGLOBIN 1.7 % (0-3); HCO3 (ACTUAL BICARBONATE) 36.2 MEQ/L (23-27); HEMOBLOGIN CONTENT 13.3 G/DL (14-18); INSTRUMENT SERIAL # 8087; METHEMOGLOBIN 0.3 % (0-3); O2 CONTENT 17.2 VOL% (18-24); OPERATOR ID 14335; PCO2 (CO2 TENSION) 76 MMHG (35-45); PO2 (O2 TENSION) 72 MMHG (79-93); SAMPLE Arterial
[2016-05-16 10:42] LABS: BASOPHILS 0.1 %; BASOPHILS ABSOLUTE 0.01 10/3/uL (0.0-0.16); EOSINOPHILS 0 %; HEMATOCRIT 39.1 % (40.0-51.0); HEMOGLOBIN 12.3 g/dL (13.6-17.8); IMMATURE GRANULOCYTES 0.1 %; IMMATURE GRANULOCYTES ABSOLUTE 0.02 10/3/uL (0.0-0.11); LYMPHOCYTES ABSOLUTE 0.58 10/3/uL (0.67-4.30); MEAN CORPUS HGB CONC 31.5 g/dL (32.0-36.0); MEAN CORPUSCULAR HEMOGLOB 28.7 pg (26.0-34.0); MEAN CORPUSCULAR VOLUME 91.4 fL (80-100); MEAN PLATELET VOLUME 9.2 fL (9.2-13.0); MONOCYTES 2.7 %; MONOCYTES ABSOLUTE 0.39 10/3/uL (0.21-1.20); NEUTROPHILS 93.1 %; NEUTROPHILS ABSOLUTE 13.64 10/3/uL (2.02-8.40); PLATELET COUNT 231 10/3/uL (150-400); RBC DISTRIBUTION WIDTH 15.3 % (12.0-16.0); RED CELL COUNT 4.28 10/6/uL (4.7-6.1)
[2016-05-16 10:44] LABS: MANUAL DIFF NO %; WHITE BLOOD CELLS 14.6 10/3/uL (4.5-10.5)
[2016-05-16 10:50] LABS: INTERNATIONAL NORMAL RATI 1.1 UNITS (-); PARTIAL THROMBO TIME 28.8 SEC (22.5-37.2)
[2016-05-16 11:00] LABS: CHEST PAIN PROFILE TAT 0 Hrs 22 Mins; CHLORIDE, SERUM 98 MMOL/L (96-112); CO2 (CARBON DIOXIDE) 38 MMOL/L (24-34); CREATININE 0.55 MG/DL (0.70-1.30); GFR AFRICAN AMERICAN 134 ML/MIN (>=60); GFR NON AFRICAN AMERICAN 116 ML/MIN (>=60); POTASSIUM, SERUM 3.8 MMOL/L (3.5-5.3); SODIUM, SERUM 141 MMOL/L (135-148); TROPONIN I <0.02 NG/ML (<0.05)
[2016-05-16 11:01] LABS: BUN (BLOOD UREA NITROGEN) 13 MG/DL (6-23); GLUCOSE, SERUM 162 MG/DL (60-99)
[2016-05-16 13:21] LABS: ALLENS TEST Pos; BE (BASE EXCESS) 11.1 MEQ/L (0 +/- 2.5); CARBOXYHEMOGLOBIN 1.7 % (0-3); HCO3 (ACTUAL BICARBONATE) 41.7 MEQ/L (23-27); HEMOBLOGIN CONTENT 13.4 G/DL (14-18); INSTRUMENT SERIAL # 8087; METHEMOGLOBIN 0.2 % (0-3); O2 CONTENT 18.2 VOL% (18-24); OPERATOR ID 14335; PCO2 (CO2 TENSION) 91 MMHG (35-45); PO2 (O2 TENSION) 103 MMHG (79-93); SAMPLE Arterial; pH 7.28 (7.37-7.43)
[2016-05-16 13:22] LABS: BIPAP 16/5 cm.H2O; CARBOXYHEMOGLOBIN 1.5 % (0-3); HCO3 (ACTUAL BICARBONATE) 38.6 MEQ/L (23-27); HEMOBLOGIN CONTENT 13.4 G/DL (14-18); INSTRUMENT SERIAL # 8087; METHEMOGLOBIN 0.3 % (0-3); O2 CONTENT 18.2 VOL% (18-24); OPERATOR ID 14335; PCO2 (CO2 TENSION) 73 MMHG (35-45); PO2 (O2 TENSION) 104 MMHG (79-93); SAMPLE Arterial; pH 7.34 (7.37-7.43)
[2016-05-16 13:23] LABS: ALLENS TEST Pos
[2016-05-17 03:54] LABS: BIPAP 16/5 cm.H2O; CARBOXYHEMOGLOBIN 1.2 % (0-3); HCO3 (ACTUAL BICARBONATE) 41.9 MEQ/L (23-27); HEMOBLOGIN CONTENT 12.5 G/DL (14-18); INSTRUMENT SERIAL # 8083; METHEMOGLOBIN 0.3 % (0-3); O2 CONTENT 16.6 VOL% (18-24); OPERATOR ID 16503; PCO2 (CO2 TENSION) 97 MMHG (35-45); PO2 (O2 TENSION) 82 MMHG (79-93); SAMPLE Arterial; pH 7.25 (7.37-7.43)
[2016-05-17 05:36] LABS: BASOPHILS 0 %; EOSINOPHILS 0 %; IMMATURE GRANULOCYTES 0.2 %; IMMATURE GRANULOCYTES ABSOLUTE 0.01 10/3/uL (0.0-0.11); LYMPHOCYTES ABSOLUTE 0.43 10/3/uL (0.67-4.30); MEAN CORPUS HGB CONC 30.8 g/dL (32.0-36.0); MEAN CORPUSCULAR HEMOGLOB 29.1 pg (26.0-34.0); MEAN PLATELET VOLUME 9.4 fL (9.2-13.0); MONOCYTES 7.3 %; MONOCYTES ABSOLUTE 0.45 10/3/uL (0.21-1.20); NEUTROPHILS 85.5 %; NEUTROPHILS ABSOLUTE 5.26 10/3/uL (2.02-8.40); PLATELET COUNT 210 10/3/uL (150-400); RBC DISTRIBUTION WIDTH 15.2 % (12.0-16.0); RED CELL COUNT 4.13 10/6/uL (4.7-6.1)
[2016-05-17 05:37] LABS: BE (BASE EXCESS) 13.2 MEQ/L (0 +/- 2.5); BIPAP 20/5 cm.H2O; CARBOXYHEMOGLOBIN 0.5 % (0-3); HCO3 (ACTUAL BICARBONATE) 42.3 MEQ/L (23-27); HEMOBLOGIN CONTENT 12.2 G/DL (14-18); INSTRUMENT SERIAL # 8083; METHEMOGLOBIN 0.2 % (0-3); O2 CONTENT 16.5 VOL% (18-24); OPERATOR ID 30013; PCO2 (CO2 TENSION) 81 MMHG (35-45); PO2 (O2 TENSION) 86 MMHG (79-93); SAMPLE Arterial; pH 7.34 (7.37-7.43)
[2016-05-17 05:44] LABS: MANUAL DIFF NO %; MEAN CORPUSCULAR VOLUME 94.4 fL (80-100); WHITE BLOOD CELLS 6.2 10/3/uL (4.5-10.5)
[2016-05-17 05:46] LABS: A/G RATIO 0.5 (0.7-1.9); ALBUMIN 2.5 G/DL (3.5-5.0); ALKALINE PHOSPHATASE 87 U/L (45-117); BUN (BLOOD UREA NITROGEN) 13 MG/DL (6-23); CALCIUM, SERUM 8.9 MG/DL (8.5-10.4); CHLORIDE, SERUM 96 MMOL/L (96-112); CO2 (CARBON DIOXIDE) 39 MMOL/L (24-34); CREATININE 0.54 MG/DL (0.70-1.30); GFR AFRICAN AMERICAN 135 ML/MIN (>=60); GFR NON AFRICAN AMERICAN 117 ML/MIN (>=60); GLOBULIN 4.6 G/DL (2.5-4.1); POTASSIUM, SERUM 4.3 MMOL/L (3.5-5.3); SGOT(AST) 17 U/L (5-40); SGPT(ALT) 18 U/L (5-65); SODIUM, SERUM 140 MMOL/L (135-148); TOTAL BILIRUBIN 0.2 MG/DL (0-1.2); TOTAL PROTEIN 7.1 G/DL (6.0-8.5)
[2016-05-17 05:47] LABS: GLUCOSE, SERUM 120 MG/DL (60-99); PHOSPHORUS, SERUM 3.6 MG/DL (2.5-4.5)
[2016-05-18 04:39] LABS: BASOPHILS 0 %; EOSINOPHILS 0 %; HEMATOCRIT 38.7 % (40.0-51.0); HEMOGLOBIN 11.6 g/dL (13.6-17.8); IMMATURE GRANULOCYTES 0.3 %; IMMATURE GRANULOCYTES ABSOLUTE 0.03 10/3/uL (0.0-0.11); LYMPHOCYTES 5.6 %; LYMPHOCYTES ABSOLUTE 0.65 10/3/uL (0.67-4.30); MEAN CORPUSCULAR HEMOGLOB 28.5 pg (26.0-34.0); MEAN CORPUSCULAR VOLUME 95.1 fL (80-100); MEAN PLATELET VOLUME 9.6 fL (9.2-13.0); MONOCYTES 8.2 %; MONOCYTES ABSOLUTE 0.95 10/3/uL (0.21-1.20); NEUTROPHILS 85.9 %; NEUTROPHILS ABSOLUTE 9.93 10/3/uL (2.02-8.40); PLATELET COUNT 207 10/3/uL (150-400); RBC DISTRIBUTION WIDTH 15.1 % (12.0-16.0); RED CELL COUNT 4.07 10/6/uL (4.7-6.1)
[2016-05-18 04:42] LABS: MANUAL DIFF NO %; WHITE BLOOD CELLS 11.6 10/3/uL (4.5-10.5)
[2016-05-18 05:01] LABS: A/G RATIO 0.6 (0.7-1.9); ALBUMIN 2.5 G/DL (3.5-5.0); ALKALINE PHOSPHATASE 82 U/L (45-117); BUN (BLOOD UREA NITROGEN) 14 MG/DL (6-23); CALCIUM, SERUM 8.7 MG/DL (8.5-10.4); CHLORIDE, SERUM 97 MMOL/L (96-112); CO2 (CARBON DIOXIDE) 40 MMOL/L (24-34); CREATININE 0.44 MG/DL (0.70-1.30); GFR AFRICAN AMERICAN 147 ML/MIN (>=60); GFR NON AFRICAN AMERICAN 127 ML/MIN (>=60); GLOBULIN 4.2 G/DL (2.5-4.1); GLUCOSE, SERUM 135 MG/DL (60-99); POTASSIUM, SERUM 3.9 MMOL/L (3.5-5.3); SGOT(AST) 18 U/L (5-40); SGPT(ALT) 24 U/L (5-65); SODIUM, SERUM 143 MMOL/L (135-148); TOTAL BILIRUBIN 0.1 MG/DL (0-1.2); TOTAL PROTEIN 6.7 G/DL (6.0-8.5)
[2016-05-18 05:08] LABS: PHOSPHORUS, SERUM 2.1 MG/DL (2.5-4.5)
[2016-05-18 11:42] LABS: ALLENS TEST Pos; BE (BASE EXCESS) 14.6 MEQ/L (0 +/- 2.5); BIPAP 20/5 cm.H2O; CARBOXYHEMOGLOBIN 0.4 % (0-3); HCO3 (ACTUAL BICARBONATE) 43.6 MEQ/L (23-27); HEMOBLOGIN CONTENT 11.9 G/DL (14-18); INSTRUMENT SERIAL # 8083; METHEMOGLOBIN 0.1 % (0-3); O2 CONTENT 16.4 VOL% (18-24); OPERATOR ID 32199; PCO2 (CO2 TENSION) 81 MMHG (35-45); PO2 (O2 TENSION) 98 MMHG (79-93); SAMPLE Arterial; pH 7.35 (7.37-7.43)
[2016-05-18 11:45] LABS: ALLENS TEST Pos; BE (BASE EXCESS) 14.6 MEQ/L (0 +/- 2.5); BIPAP 20/5 cm.H2O; CARBOXYHEMOGLOBIN 0.1 % (0-3); HCO3 (ACTUAL BICARBONATE) 43.6 MEQ/L (23-27); HEMOBLOGIN CONTENT 12.7 G/DL (14-18); INSTRUMENT SERIAL # 8083; METHEMOGLOBIN 0.1 % (0-3); O2 CONTENT 17.3 VOL% (18-24); OPERATOR ID 32199; PCO2 (CO2 TENSION) 79 MMHG (35-45); PO2 (O2 TENSION) 89 MMHG (79-93); SAMPLE Arterial; pH 7.36 (7.37-7.43)
[2016-05-18 12:28] LABS: ALLENS TEST Pos; BE (BASE EXCESS) 14.4 MEQ/L (0 +/- 2.5); CARBOXYHEMOGLOBIN 0.6 % (0-3); HCO3 (ACTUAL BICARBONATE) 45.2 MEQ/L (23-27); HEMOBLOGIN CONTENT 12.2 G/DL (14-18); INSTRUMENT SERIAL # 8083; METHEMOGLOBIN 0.3 % (0-3); OPERATOR ID 14661; PCO2 (CO2 TENSION) 98 MMHG (35-45); PO2 (O2 TENSION) 128 MMHG (79-93); SAMPLE Arterial; pH 7.28 (7.37-7.43)
[2016-05-18 13:00] LABS: PROCALCITONIN <0.05 ng/mL (<0.5)
[2016-05-19 05:29] LABS: BASOPHILS 0 %; EOSINOPHILS 0 %; HEMOGLOBIN 10.6 g/dL (13.6-17.8); IMMATURE GRANULOCYTES 0.1 %; IMMATURE GRANULOCYTES ABSOLUTE 0.01 10/3/uL (0.0-0.11); LYMPHOCYTES ABSOLUTE 0.72 10/3/uL (0.67-4.30); MEAN CORPUS HGB CONC 30.3 g/dL (32.0-36.0); MEAN CORPUSCULAR HEMOGLOB 28.4 pg (26.0-34.0); MEAN CORPUSCULAR VOLUME 93.8 fL (80-100); MEAN PLATELET VOLUME 9.5 fL (9.2-13.0); MONOCYTES ABSOLUTE 0.87 10/3/uL (0.21-1.20); NEUTROPHILS 77.9 %; NEUTROPHILS ABSOLUTE 5.62 10/3/uL (2.02-8.40); PLATELET COUNT 162 10/3/uL (150-400); RBC DISTRIBUTION WIDTH 15.3 % (12.0-16.0); RED CELL COUNT 3.73 10/6/uL (4.7-6.1); WHITE BLOOD CELLS 7.2 10/3/uL (4.5-10.5)
[2016-05-19 05:32] LABS: MANUAL DIFF NO %
[2016-05-19 05:47] LABS: BUN (BLOOD UREA NITROGEN) 15 MG/DL (6-23); CALCIUM, SERUM 8.5 MG/DL (8.5-10.4); CHLORIDE, SERUM 97 MMOL/L (96-112); CO2 (CARBON DIOXIDE) 40 MMOL/L (24-34); CREATININE 0.42 MG/DL (0.70-1.30); GFR AFRICAN AMERICAN 150 ML/MIN (>=60); GFR NON AFRICAN AMERICAN 129 ML/MIN (>=60); GLUCOSE, SERUM 132 MG/DL (60-99); PHOSPHORUS, SERUM 2.3 MG/DL (2.5-4.5); POTASSIUM, SERUM 4.1 MMOL/L (3.5-5.3); SODIUM, SERUM 139 MMOL/L (135-148)
[2016-05-20 04:34] LABS: BASOPHILS 0.1 %; BASOPHILS ABSOLUTE 0.01 10/3/uL (0.0-0.16); EOSINOPHILS 0 %; HEMATOCRIT 36.6 % (40.0-51.0); HEMOGLOBIN 11.2 g/dL (13.6-17.8); IMMATURE GRANULOCYTES 0.4 %; IMMATURE GRANULOCYTES ABSOLUTE 0.03 10/3/uL (0.0-0.11); LYMPHOCYTES 10.1 %; LYMPHOCYTES ABSOLUTE 0.77 10/3/uL (0.67-4.30); MEAN CORPUS HGB CONC 30.6 g/dL (32.0-36.0); MEAN CORPUSCULAR VOLUME 94.8 fL (80-100); MEAN PLATELET VOLUME 9.4 fL (9.2-13.0); MONOCYTES ABSOLUTE 0.91 10/3/uL (0.21-1.20); NEUTROPHILS 77.4 %; NEUTROPHILS ABSOLUTE 5.88 10/3/uL (2.02-8.40); PLATELET COUNT 180 10/3/uL (150-400); RBC DISTRIBUTION WIDTH 15.3 % (12.0-16.0); RED CELL COUNT 3.86 10/6/uL (4.7-6.1); WHITE BLOOD CELLS 7.6 10/3/uL (4.5-10.5)
[2016-05-20 04:35] LABS: MANUAL DIFF NO %
[2016-05-20 04:47] LABS: CALCIUM, SERUM 8.6 MG/DL (8.5-10.4); CHLORIDE, SERUM 96 MMOL/L (96-112); CREATININE 0.49 MG/DL (0.70-1.30); GFR AFRICAN AMERICAN 141 ML/MIN (>=60); GFR NON AFRICAN AMERICAN 121 ML/MIN (>=60); GLUCOSE, SERUM 135 MG/DL (60-99); POTASSIUM, SERUM 3.7 MMOL/L (3.5-5.3); SODIUM, SERUM 143 MMOL/L (135-148)
[2016-05-20 04:52] LABS: BUN (BLOOD UREA NITROGEN) 11 MG/DL (6-23); CO2 (CARBON DIOXIDE) 42 MMOL/L (24-34)
[2016-05-22 04:39] LABS: BASOPHILS 0 %; EOSINOPHILS 2.7 %; EOSINOPHILS ABSOLUTE 0.18 10/3/uL (0.0-0.53); HEMATOCRIT 40.2 % (40.0-51.0); HEMOGLOBIN 12.2 g/dL (13.6-17.8); IMMATURE GRANULOCYTES 0.2 %; IMMATURE GRANULOCYTES ABSOLUTE 0.01 10/3/uL (0.0-0.11); LYMPHOCYTES 17.6 %; LYMPHOCYTES ABSOLUTE 1.16 10/3/uL (0.67-4.30); MEAN CORPUS HGB CONC 30.3 g/dL (32.0-36.0); MEAN CORPUSCULAR HEMOGLOB 28.7 pg (26.0-34.0); MEAN CORPUSCULAR VOLUME 94.6 fL (80-100); MEAN PLATELET VOLUME 9.5 fL (9.2-13.0); MONOCYTES 13.5 %; MONOCYTES ABSOLUTE 0.89 10/3/uL (0.21-1.20); NEUTROPHILS ABSOLUTE 4.35 10/3/uL (2.02-8.40); PLATELET COUNT 212 10/3/uL (150-400); RED CELL COUNT 4.25 10/6/uL (4.7-6.1); WHITE BLOOD CELLS 6.6 10/3/uL (4.5-10.5)
[2016-05-22 04:40] LABS: MANUAL DIFF NO %
[2016-05-22 04:50] LABS: BUN (BLOOD UREA NITROGEN) 11 MG/DL (6-23); CHLORIDE, SERUM 96 MMOL/L (96-112); CREATININE 0.55 MG/DL (0.70-1.30); GFR AFRICAN AMERICAN 134 ML/MIN (>=60); GFR NON AFRICAN AMERICAN 116 ML/MIN (>=60); GLUCOSE, SERUM 123 MG/DL (60-99); SODIUM, SERUM 142 MMOL/L (135-148)
[2016-05-22 05:34] LABS: CO2 (CARBON DIOXIDE) 43 MMOL/L (24-34); POTASSIUM, SERUM 4.1 MMOL/L (3.5-5.3)
[2016-05-22 05:35] LABS: CALCIUM, SERUM 8.8 MG/DL (8.5-10.4)
[2016-05-23 05:13] LABS: BASOPHILS 0 %; EOSINOPHILS 1.4 %; EOSINOPHILS ABSOLUTE 0.09 10/3/uL (0.0-0.53); HEMATOCRIT 40.1 % (40.0-51.0); HEMOGLOBIN 12.1 g/dL (13.6-17.8); IMMATURE GRANULOCYTES 0.2 %; IMMATURE GRANULOCYTES ABSOLUTE 0.01 10/3/uL (0.0-0.11); LYMPHOCYTES 12.8 %; LYMPHOCYTES ABSOLUTE 0.82 10/3/uL (0.67-4.30); MEAN CORPUS HGB CONC 30.2 g/dL (32.0-36.0); MEAN CORPUSCULAR HEMOGLOB 28.7 pg (26.0-34.0); MEAN CORPUSCULAR VOLUME 95.2 fL (80-100); MEAN PLATELET VOLUME 9.2 fL (9.2-13.0); MONOCYTES 10.6 %; MONOCYTES ABSOLUTE 0.68 10/3/uL (0.21-1.20); PLATELET COUNT 204 10/3/uL (150-400); RBC DISTRIBUTION WIDTH 15.1 % (12.0-16.0); RED CELL COUNT 4.21 10/6/uL (4.7-6.1); WHITE BLOOD CELLS 6.4 10/3/uL (4.5-10.5)
[2016-05-23 05:15] LABS: MANUAL DIFF NO %
[2016-05-23 05:28] LABS: A/G RATIO 0.7 (0.7-1.9); ALBUMIN 2.6 G/DL (3.5-5.0); ALKALINE PHOSPHATASE 77 U/L (45-117); BUN (BLOOD UREA NITROGEN) 14 MG/DL (6-23); CALCIUM, SERUM 8.7 MG/DL (8.5-10.4); CHLORIDE, SERUM 97 MMOL/L (96-112); CREATININE 0.48 MG/DL (0.70-1.30); GFR AFRICAN AMERICAN 142 ML/MIN (>=60); GFR NON AFRICAN AMERICAN 122 ML/MIN (>=60); GLUCOSE, SERUM 111 MG/DL (60-99); SGOT(AST) 14 U/L (5-40); SGPT(ALT) 25 U/L (5-65); SODIUM, SERUM 144 MMOL/L (135-148); TOTAL BILIRUBIN 0.1 MG/DL (0-1.2); TOTAL PROTEIN 6.6 G/DL (6.0-8.5)
[2016-05-23 05:44] LABS: CO2 (CARBON DIOXIDE) 43 MMOL/L (24-34)
[2016-05-24 04:35] LABS: BASOPHILS 0 %; EOSINOPHILS 1.1 %; EOSINOPHILS ABSOLUTE 0.08 10/3/uL (0.0-0.53); HEMATOCRIT 37.3 % (40.0-51.0); HEMOGLOBIN 11.2 g/dL (13.6-17.8); IMMATURE GRANULOCYTES 0.1 %; IMMATURE GRANULOCYTES ABSOLUTE 0.01 10/3/uL (0.0-0.11); LYMPHOCYTES 11.7 %; LYMPHOCYTES ABSOLUTE 0.84 10/3/uL (0.67-4.30); MEAN CORPUSCULAR HEMOGLOB 28.5 pg (26.0-34.0); MEAN CORPUSCULAR VOLUME 94.9 fL (80-100); MEAN PLATELET VOLUME 9.1 fL (9.2-13.0); MONOCYTES 10.3 %; MONOCYTES ABSOLUTE 0.74 10/3/uL (0.21-1.20); NEUTROPHILS 76.8 %; PLATELET COUNT 201 10/3/uL (150-400); RBC DISTRIBUTION WIDTH 15.2 % (12.0-16.0); RED CELL COUNT 3.93 10/6/uL (4.7-6.1); WHITE BLOOD CELLS 7.2 10/3/uL (4.5-10.5)
[2016-05-24 04:37] LABS: MANUAL DIFF NO %
[2016-05-24 04:54] LABS: A/G RATIO 0.7 (0.7-1.9); ALBUMIN 2.5 G/DL (3.5-5.0); ALKALINE PHOSPHATASE 71 U/L (45-117); BUN (BLOOD UREA NITROGEN) 12 MG/DL (6-23); CHLORIDE, SERUM 96 MMOL/L (96-112); CO2 (CARBON DIOXIDE) 45 MMOL/L (24-34); CREATININE 0.47 MG/DL (0.70-1.30); GFR AFRICAN AMERICAN 143 ML/MIN (>=60); GFR NON AFRICAN AMERICAN 123 ML/MIN (>=60); GLOBULIN 3.7 G/DL (2.5-4.1); GLUCOSE, SERUM 107 MG/DL (60-99); SGOT(AST) 16 U/L (5-40); SGPT(ALT) 27 U/L (5-65); SODIUM, SERUM 143 MMOL/L (135-148); TOTAL BILIRUBIN 0.1 MG/DL (0-1.2); TOTAL PROTEIN 6.2 G/DL (6.0-8.5)
[2016-05-25 05:44] LABS: BASOPHILS 0 %; EOSINOPHILS 1.9 %; EOSINOPHILS ABSOLUTE 0.13 10/3/uL (0.0-0.53); HEMOGLOBIN 11.8 g/dL (13.6-17.8); IMMATURE GRANULOCYTES 0.1 %; IMMATURE GRANULOCYTES ABSOLUTE 0.01 10/3/uL (0.0-0.11); LYMPHOCYTES 17.3 %; LYMPHOCYTES ABSOLUTE 1.17 10/3/uL (0.67-4.30); MEAN CORPUS HGB CONC 30.3 g/dL (32.0-36.0); MEAN CORPUSCULAR HEMOGLOB 28.6 pg (26.0-34.0); MEAN CORPUSCULAR VOLUME 94.7 fL (80-100); MEAN PLATELET VOLUME 9.2 fL (9.2-13.0); MONOCYTES 13.3 %; NEUTROPHILS 67.4 %; NEUTROPHILS ABSOLUTE 4.57 10/3/uL (2.02-8.40); PLATELET COUNT 221 10/3/uL (150-400); RBC DISTRIBUTION WIDTH 15.4 % (12.0-16.0); RED CELL COUNT 4.12 10/6/uL (4.7-6.1); WHITE BLOOD CELLS 6.8 10/3/uL (4.5-10.5)
[2016-05-25 05:45] LABS: MANUAL DIFF NO %
[2016-05-25 05:59] LABS: A/G RATIO 0.8 (0.7-1.9); ALBUMIN 2.8 G/DL (3.5-5.0); ALKALINE PHOSPHATASE 74 U/L (45-117); BUN (BLOOD UREA NITROGEN) 14 MG/DL (6-23); CHLORIDE, SERUM 93 MMOL/L (96-112); GFR AFRICAN AMERICAN 153 ML/MIN (>=60); GFR NON AFRICAN AMERICAN 132 ML/MIN (>=60); GLOBULIN 3.4 G/DL (2.5-4.1); POTASSIUM, SERUM 3.9 MMOL/L (3.5-5.3); SGOT(AST) 15 U/L (5-40); SGPT(ALT) 26 U/L (5-65); SODIUM, SERUM 143 MMOL/L (135-148); TOTAL PROTEIN 6.2 G/DL (6.0-8.5)
[2016-05-25 06:01] LABS: CO2 (CARBON DIOXIDE) > 45 MMOL/L (24-34); GLUCOSE, SERUM 58 MG/DL (60-99); TOTAL BILIRUBIN 0.6 MG/DL (0-1.2)
== END 2016-05-25 17:58 | disposition hospice, home (50) | DRG 189 ==
LOC: ER 09:51 → IMCU 16:28
PROVIDERS: Emergency Medicine; Hospitalist; Internal Medicine
DX: J96.21 Acute and chronic respiratory failure with hypoxia (principal); J44.1 Chronic obstructive pulmonary disease with (acute) exacerbation; I10 Essential (primary) hypertension; F41.9 Anxiety disorder, unspecified; Z51.5 Encounter for palliative care; J96.22 Acute and chronic respiratory failure with hypercapnia
CPT/HCPCS: 31720; 36600; 71010; 71250; 80048; 80053; 82330; 82803; 82805; 82947; 82962; 83735; 83880; 84100; 84132; 84145; 84295; 84484; 85014; 85025; 85610; 85730; 87205; 87641; 93005; 94640; 94660; 94762; 96365; 99285; A9270-GY; J2920